=== PATIENT | female | born 1980 | race Caucasian/White ===

== ENCOUNTER 2018-02-14 19:20 | Emergency (ER) | payer SELFPAY ==
[2018-02-14] MEDS ORDERED: CEPHALEXIN 500 MG CAPSULE PO ONE (21:37)
[2018-02-14] MEDS ORDERED: TRAMADOL HCL 50 MG TABLET PO ONE (21:37)
[2018-02-14] MEDS ORDERED: SULFAMETHOXAZOLE/TRIMETHOPRIM 800-160 MG TABLET PO ONE (21:37)
--- NOTE | 2018-02-14 21:40 | ER Document Report ---
ED Skin Rash/Insect Bite/Abscs - General Chief Complaint: Abscess Stated Complaint: ABSCESS/LEFT ARMPIT Time Seen by Provider: 02/14/18 21:30 Mode of Arrival: Ambulatory Information source: Patient TRAVEL OUTSIDE OF THE [place] IN LAST 30 DAYS: No - HPI Patient complains to provider of: Tender/swollen area Notes: Patient is here with complaints of abscess to the left axilla. She states that she gets these quite often the same area. She states that for the last week or so it has gotten red and inflamed and painful. She states sometimes it drains on its own, but this will not drain on its own. No fevers. No drainage. No nausea, vomiting, diarrhea. Pain is worse with putting her arm down and touching the area. She denies any fever. No history of diabetes. She denies IV drug use. She denies any chronic medical problems. She has no other complaints at this time. - Related Data Allergies/Adverse Reactions: No Known Allergies Allergy (Unverified 02/14/18 19:23) Past Medical History - Social History Smoking Status: Current Every Day Smoker Family History: Reviewed & Not Pertinent Review of Systems - Review of Systems -: Yes All other systems reviewed and negative Physical Exam - Vital signs Vitals: Temp Pulse Resp BP Pulse Ox 98.8 F 72 16 133/64 H 100 02/14/18 19:41 02/14/18 19:41 02/14/18 19:41 02/14/18 19:41 02/14/18 19:41 - Notes Notes: GENERAL: alert, cooperative, nontoxic, no distress. HEAD: normocephalic, atraumatic EYES: conjunctiva pink without discharge, no external redness or swelling. EARS: no external swelling, no external redness NOSE: atraumatic, no external swelling MOUTH/THROAT: mucous membranes moist and pink NECK: soft, supple, full range of motion, no meningismus. CHEST: no distress, lungs clear and equal throughout. No wheezing, rales, rhonchi. CARDIAC: regular rate and rhythm, no murmur, normal capillary refill, normal pulses. BACK: full range of motion, no CVA tenderness. EXTREMITIES: full range of motion of all extremities. No redness, no swelling. NEURO: alert and oriented 3, no focal deficits, full range of motion of all extremities. PYSCH: appropriate mood, affect. Patient is cooperative. SKIN: pink, warm, dry, no rash. Soft fluctuant tender abscess to the left axilla. There is some surrounding cellulitis noted. No active drainage. Multiple scars and scar tissue present. Course - Re-evaluation Re-evalutation: 02/14/18 22:51 Patient is nontoxic-appearing with stable vitals. Here with complaints of abscess to left axilla. She has a history of having this multiple times in the past. On exam she is noted to have a fluctuant abscess to the left axilla with some mild surrounding cellulitis. She is afebrile. She is nontoxic-appearing vitals are stable. Was able to I&D the abscess and was able to obtain a moderate amount of purulent drainage from this area. Patient was given a dose of Bactrim and Keflex in the emergency department. She will be discharged home on Bactrim and Keflex as well as oxycodone. Apply warm compresses. Follow-up if not better in the next 2-3 days, sooner for worsening pain, fever, increased redness or swelling, persistent vomiting, or for any further concerns. The patient is noted to have elevated blood pressure during today's emergency department visit. The patient was informed of this finding. The patient was instructed that this may be related to pre-hypertension and requires further evaluation with a primary care provider. The patient has no hypertensive symptoms at this time. The patient's emergency department workup and current diagnosis were explained to the patient and or family. Follow-up instructions were provided. Medications if prescribed were discussed. Instructions for when to return to the emergency department including specific worrisome symptoms were discussed with the patient and/or family. - Vital Signs Vital signs: Temp Pulse Resp BP Pulse Ox 98.8 F 72 16 133/64 H 100 02/14/18 19:41 02/14/18 19:41 02/14/18 19:41 02/14/18 19:41 02/14/18 19:41 Procedures - Incision and Drainage Left axilla Type: Simple Anesthetic type: 1% Lidocaine Blade size: 11 I&D procedure: Betadine prep applied Incision Method: Incision made by scalpel Amount/type of drainage: Moderate amount of purulent drainage Notes: 02/14/18 22:52 Loculations broken up with hemostats Discharge - Discharge Clinical Impression: Abscess of axilla, left, Cellulitis of left axilla Condition: Stable Disposition: HOME, SELF-CARE Instructions: Abscess ([facility]), Cephalexin ([facility]), Trimethoprim-Sulfa ([facility]), Oral Narcotic Medication ([facility]), Post Incision and Drainage Additional Instructions: Take medications as prescribed. Apply warm compresses sore area. Follow-up if not improving in the next 2 days, sooner for increasing pain, fever, redness, drainage, any further concerns. Prescriptions: Cephalexin Monohydrate [Keflex 500 mg Capsule] 500 mg PO Q6H #40 capsule Oxycodone HCl 5 mg PO Q4H PRN #10 tablet PRN Reason: Sulfamethoxazole/Trimethoprim [Bactrim Ds Tablet] 1 each PO BID #20 tablet Forms: Elevated Blood Pressure, Smoking Cessation Education Referrals: [facility] [Provider Group] - Follow up as needed
[2018-02-15 00:44] VITALS: BP 120/64
== END 2018-02-14 23:15 | disposition home or self-care (01) ==
LOC: ER 19:20
PROC: 0H9CXZZ Drainage of Left Upper Arm Skin, External Approach (ICD-10-PCS; principal; 2018-02-14)
DX: L02.412 Cutaneous abscess of left axilla (principal); F17.200 Nicotine dependence, unspecified, uncomplicated
CPT/HCPCS: 99283